=== PATIENT | male | born 1965 | race Caucasian/White ===

== ENCOUNTER → 2016-12-19 | Outpatient (CLI) | payer OTHER | LOC: FIMAGING 16:02 | PROVIDERS: ATTEND Surgery | DX: D44.12 Neoplasm of uncertain behavior of left adrenal gland (principal) ==

== ENCOUNTER → 2017-03-20 | Outpatient (CLI) | payer OTHER | LOC: FIMAGING 15:24 | PROVIDERS: ATTEND Orthopaedic Surgery | DX: M54.17 Radiculopathy, lumbosacral region (principal); M51.36 Other intervertebral disc degeneration, lumbar region; M51.26 Other intervertebral disc displacement, lumbar region ==

== ENCOUNTER → 2017-03-26 | Day surgery (SDC) | payer OTHER ==
[~2017-03-26] MED LIST: IOPAMIDOL (ISOVUE-M 300) 15 ML VIAL ONE; LIDOCAINE 1% 300 MG/30 ML SDV ONE; MIDAZOLAM 2 MG/2 ML VIAL ONE; NS 1,000 ML IV SCH; TRIAMCINOLONE ACETONIDE 200 MG/5 ML MDV IM ONE; fentaNYL 100 MCG/2 ML INJ ONE
== END | disposition home or self-care (01) ==
LOC: FIMAGING 13:17
PROVIDERS: ATTEND Orthopaedic Surgery
PROC: 3E0S3BZ Introduction of Anesthetic Agent into Epidural Space, Percutaneous Approach (ICD-10-PCS; principal; 2017-03-26 15:25)
PROC: 3E0S33Z Introduction of Anti-inflammatory into Epidural Space, Percutaneous Approach (ICD-10-PCS; principal; 2017-03-26 15:25)
DX: M47.26 Other spondylosis with radiculopathy, lumbar region (principal); M51.36 Other intervertebral disc degeneration, lumbar region
CPT/HCPCS: J2250; J3010; J3301; Q9967

== ENCOUNTER 2017-10-31 14:36 | Emergency (ER) | payer OTHER ==
[2017-10-31 14:42] VITALS: RESP 18
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
[2017-10-31 16:27] VITALS: BP 105/8; PULSE 78; TEMP 97.3; O2SAT 91
== END 2017-10-31 16:26 | disposition home or self-care (01) ==
DX: S33.9XXA Sprain of unspecified parts of lumbar spine and pelvis, initial encounter (principal); S80.01XA Contusion of right knee, initial encounter; I10 Essential (primary) hypertension; V59.59XA Passenger in pick-up truck or van injured in collision with other motor vehicles in traffic accident, initial encounter; Y92.410 Unspecified street and highway as the place of occurrence of the external cause

== ENCOUNTER 2017-11-05 13:32 | Day surgery (SDC) | payer OTHER ==
[2017-11-05] MEDS ORDERED: MEPERIDINE 25 MG/ML SYR IVP PRN (13:41)
[2017-11-05] MEDS ORDERED: ALTEPLASE 2 MG VIAL IVP PRN (13:41)
[2017-11-05] MEDS ORDERED: MIDAZOLAM 2 MG/2 ML VIAL IVP PRN (13:41)
[2017-11-05] MEDS ORDERED: FLUMAZENIL 0.5 MG/5 ML MDV IVP PRN (13:41)
[2017-11-05] MEDS ORDERED: GLUCAGON HCL 1 MG VIAL IVP PRN (13:41)
[2017-11-05] MEDS ORDERED: NALOXONE HCL 0.4 MG/ML INJ IVP PRN (13:41)
[2017-11-05] MEDS ORDERED: fentaNYL 100 MCG/2 ML INJ IVP PRN (13:41)
[2017-11-05] MEDS ORDERED: HEPARIN 10,000 UNIT/10 ML MDV (1,000 UNIT/ML) IVP PRN (13:41)
[2017-11-05] MEDS ORDERED: PROTAMINE SULFATE 50 MG/5 ML VIAL IVP PRN (13:41)
[2017-11-05] MEDS ORDERED: NS 1,000 ML IV SCH (13:45)
[2017-11-05 14:28] VITALS: PULSE 67; RESP 18; TEMP 97.6
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
--- NOTE | 2017-11-05 15:02 | PDPROPOC ---
Sedation Plan of Care Sedation Plan of Care: vital signs stable, mental status noted, patient educated of risks, benefits, alternatives, patient can tolerate sedation ASA Classification: ASA 3 Planned drugs: fentanyl, midazolam Mallampati Score: Class 2 Mallampati Reference Image: Patient passed 3-3-2 rule?: Yes
[2017-11-05] MEDS ORDERED: FLUMAZENIL 0.5 MG/5 ML MDV IVP ONE (15:10)
[2017-11-05] MEDS ORDERED: NALOXONE HCL 0.4 MG/ML INJ ONE (15:11)
[2017-11-05] MEDS ORDERED: MIDAZOLAM 2 MG/2 ML VIAL ONE (15:11)
[2017-11-05] MEDS ORDERED: fentaNYL 100 MCG/2 ML INJ ONE (15:11)
[2017-11-05 16:19] VITALS: BP 144/83; O2SAT 94
[2017-11-05] MEDS ORDERED: TRIAMCINOLONE ACETONIDE 200 MG/5 ML MDV IM ONE (16:39)
[2017-11-05] MEDS ORDERED: IOPAMIDOL (ISOVUE-M 300) 15 ML VIAL ONE (16:39)
== END 2017-11-05 18:16 | disposition home or self-care (01) ==
LOC: FIMAGING 13:32
PROVIDERS: ATTEND Orthopaedic Surgery
DX: M54.17 Radiculopathy, lumbosacral region (principal)
CPT/HCPCS: J2250; J2310; J3010; J3301; Q9967

== ENCOUNTER 2018-07-16 13:00 | Day surgery (SDC) | payer OTHER ==
[2018-07-16] MEDS ORDERED: MEPERIDINE 25 MG/ML SYR IVP PRN (13:07)
[2018-07-16] MEDS ORDERED: NALOXONE HCL 0.4 MG/ML INJ IVP PRN (13:07)
[2018-07-16] MEDS ORDERED: fentaNYL 100 MCG/2 ML INJ IVP PRN (13:07)
[2018-07-16] MEDS ORDERED: MIDAZOLAM 2 MG/2 ML VIAL IVP PRN (13:07)
[2018-07-16] MEDS ORDERED: FLUMAZENIL 0.5 MG/5 ML MDV IVP PRN (13:07)
[2018-07-16] MEDS ORDERED: NS 1,000 ML IV SCH (13:15)
[2018-07-16] MEDS ORDERED: IOPAMIDOL (ISOVUE-M 300) 15 ML VIAL ONE (13:25)
[2018-07-16] MEDS ORDERED: TRIAMCINOLONE ACETONIDE 200 MG/5 ML MDV IM ONE (13:25)
[2018-07-16] MEDS ORDERED: FLUMAZENIL 0.5 MG/5 ML MDV IVP ONE (14:09)
[2018-07-16] MEDS ORDERED: NALOXONE HCL 0.4 MG/ML INJ ONE (14:09)
[2018-07-16] MEDS ORDERED: MIDAZOLAM 2 MG/2 ML VIAL ONE (14:09)
[2018-07-16] MEDS ORDERED: fentaNYL 100 MCG/2 ML INJ ONE (14:10)
--- NOTE | 2018-07-16 15:00 | PDPROPOC ---
Sedation Plan of Care Sedation Plan of Care: vital signs stable, mental status noted, patient educated of risks, benefits, alternatives, patient can tolerate sedation ASA Classification: ASA 2 Planned drugs: fentanyl, midazolam Mallampati Score: Class 3 Mallampati Reference Image: Patient passed 3-3-2 rule?: Yes
--- NOTE | 2018-07-16 15:00 | PDRADPRE ---
Radiology History & Physical Indication for procedure: back pain Home medications: Prozac 12/13/09 [Last Taken 07/15/18] Flexeril 10 MG (*) 10 mg PRN 03/23/17 [Last Taken 06/11/18] Naproxen/Esomeprazole Mag [Vimovo Dr 375-20 mg Tablet] 1 each PO DAILY PRN 11/05 [Last Taken 07/10/18] Advil 600 mg PO PRN PRN 07/16/18 [Last Taken 07/14/18] Allergies/Adverse Reactions: No Known Allergies Allergy (Verified 10/31/17 14:38) Mental status: A&Ox3 Heart exam: regular rate and rhythm Lungs exam: clear to auscultation Mallampati Score: Class 3
[2018-07-16] MEDS ORDERED: ONDANSETRON 4 MG/2 ML VIAL IVP PRN (15:18)
--- NOTE | 2018-07-16 15:20 | PDRADPN ---
Radiology Procedure Note Date of Procedure: 07/16/18 Radiologist: Magdy Castano Anesthesia: IV Sedation Pre-op Diagnosis: LBP/Radiculopathy Post-op Diagnosis: LBP/Radiculopathy Indication: LBP/Radiculopathy Procedure: Lumbar TAMELA Finding(s): L3/4 TAMELA Inf/Abcess present in the surg proc area at time of surgery?: No
[2018-07-16 15:33] VITALS: BP 132/81
== END 2018-07-16 16:27 | disposition home or self-care (01) ==
LOC: FIMAGING 13:00
PROVIDERS: ATTEND Orthopaedic Surgery
PROC: 3E0S33Z Introduction of Anti-inflammatory into Epidural Space, Percutaneous Approach (ICD-10-PCS; 2018-07-16)
PROC: B01B1ZZ Fluoroscopy of Spinal Cord using Low Osmolar Contrast (ICD-10-PCS; 2018-07-16)
PROC: 3E0S3BZ Introduction of Anesthetic Agent into Epidural Space, Percutaneous Approach (ICD-10-PCS; principal; 2018-07-16 15:25)
DX: M54.17 Radiculopathy, lumbosacral region (principal)
CPT/HCPCS: J2250; J2310; J3010; J3301; Q9967

== ENCOUNTER 2019-02-12 13:16 | Day surgery (SDC) | payer OTHER | END 2019-02-12 15:59 | disposition home or self-care (01) | LOC: FIMAGING 13:16 ==